=== PATIENT | male | born 1985 | race African-American/Black ===

== ENCOUNTER 2020-07-24 02:35 | Inpatient (IN) | payer OTHER ==
[~2020-07-24] VITALS: Ht 167.6 cm; Wt 90.7 kg
[2020-07-24 03:23] LABS: BASOPHIL % 0.8 % (0-2); PLATELET COUNT 197 x10^3mcL (130-400); RED CELL DISTRIBUTION WIDTH 13.7 % (11.5-14.5)
[2020-07-24 04:00] LABS: CALCIUM 7.5 mg/dL (8.5-10.1); CARBON DIOXIDE 19.6 mmol/L (21-32); CHLORIDE SERUM 105 mmol/L (98-107); CREATININE SERUM 1.5 mg/dL (0.7-1.3); GFR1 56 mL/min; GLUCOSE SERUM 183 mg/dL (74-106); SODIUM SERUM 138 mmol/L (136-145)
[2020-07-24 04:06] LABS: AMPHETAMINE QUAL UR NONE DETECTED (See below)
[2020-07-24 04:06] LABS: ALKALINE PHOSPHATASE 70 U/L (46-116); ALT/SGPT 146 U/L (16-63); AST/SGOT 134 U/L (15-37); BILIRUBIN TOTAL 0.37 mg/dL (0.20-1.00); TOTAL PROTEIN, SERUM 6.9 g/dL (6.4-8.2)
[2020-07-24 04:09] LABS: ALBUMIN 3.2 g/dL (3.4-5.0)
[2020-07-24 06:25] VITALS: BP 134/75
[2020-07-24 08:30] VITALS: BP 118/72
[2020-07-24 09:35] VITALS: BP 118/72
[2020-07-24 16:31] VITALS: BP 130/64
[2020-07-24 19:53] VITALS: BP 94/46
[2020-07-25 05:27] VITALS: BP 128/84
[2020-07-25 07:31] LABS: BASOPHIL % 0.2 % (0-2); PLATELET COUNT 172 x10^3mcL (130-400); RED CELL DISTRIBUTION WIDTH 14.5 % (11.5-14.5)
[2020-07-25 08:01] LABS: CALCIUM 8.4 mg/dL (8.5-10.1); CHLORIDE SERUM 102 mmol/L (98-107); CREATININE SERUM 1.2 mg/dL (0.7-1.3); GFR1 > 60 mL/min; GLUCOSE SERUM 104 mg/dL (74-106); POTASSIUM SERUM 3.8 mmol/L (3.5-5.1); SODIUM SERUM 137 mmol/L (136-145)
[2020-07-25 08:03] LABS: ALKALINE PHOSPHATASE 61 U/L (46-116); ALT/SGPT 87 U/L (16-63); AST/SGOT 35 U/L (15-37); BILIRUBIN TOTAL 0.98 mg/dL (0.20-1.00); CALCIUM 8.4 mg/dL (8.5-10.1); CARBON DIOXIDE 29.5 mmol/L (21-32); CHLORIDE SERUM 103 mmol/L (98-107); CREATININE SERUM 1.2 mg/dL (0.7-1.3); GFR1 > 60 mL/min; GLUCOSE SERUM 104 mg/dL (74-106); POTASSIUM SERUM 3.8 mmol/L (3.5-5.1); SODIUM SERUM 138 mmol/L (136-145); T4(THYROXINE) 5.2 ug/dL (4.7-13.3); TOTAL PROTEIN, SERUM 7.2 g/dL (6.4-8.2)
[2020-07-25 08:08] LABS: ALBUMIN 3.2 g/dL (3.4-5.0)
[2020-07-25 08:35] VITALS: BP 115/73
[2020-07-25 09:32] LABS: ERYTHROCYTE SED RATE 29 mm/hr (0-15)
[2020-07-25 12:08] VITALS: BP 123/71
[2020-07-25 16:13] VITALS: BP 105/58
[2020-07-25 20:30] VITALS: BP 129/82
[2020-07-26 05:12] LABS: RAPID PLASMA REAGIN Non Reactive (Non Reactive)
[2020-07-26 05:13] VITALS: BP 148/100
[2020-07-26 07:31] LABS: CHLORIDE SERUM 101 mmol/L (98-107); CREATININE SERUM 1.1 mg/dL (0.7-1.3); GFR1 > 60 mL/min; GLUCOSE SERUM 88 mg/dL (74-106); POTASSIUM SERUM 3.7 mmol/L (3.5-5.1); SODIUM SERUM 137 mmol/L (136-145)
[2020-07-26 07:32] LABS: BASOPHIL % 0.3 % (0-2); PLATELET COUNT 177 x10^3mcL (130-400); RED CELL DISTRIBUTION WIDTH 14.3 % (11.5-14.5)
[2020-07-26 07:53] VITALS: BP 134/79
[2020-07-26 09:05] LABS: RHEUMATOID ARTHRITIS FACTOR 11.9 IU/mL (0.0-13.9)
[2020-07-26 11:44] VITALS: BP 128/74
[2020-07-26 13:58] VITALS: BP 128/74
== END 2020-07-26 18:23 | disposition other institution (70) | DRG 917 ==
LOC: ED 02:35 → DU 04:37
PROVIDERS: Student in an Organized Health Care Education/Training Program; ADMIT Internal Medicine; ATTEND Internal Medicine
DX: T50.901A Poisoning by unspecified drugs, medicaments and biological substances, accidental (unintentional), initial encounter (principal); J69.0 Pneumonitis due to inhalation of food and vomit; N17.9 Acute kidney failure, unspecified; Z82.49 Family history of ischemic heart disease and other diseases of the circulatory system; E87.5 Hyperkalemia; Y92.89 Other specified places as the place of occurrence of the external cause; Z20.828 Contact with and (suspected) exposure to other viral communicable diseases
CPT/HCPCS: 86431; G0378; G0480; J2405; J2543; J7030; Q0092; U0003-CS